=== PATIENT | female | born 1975 | race Caucasian/White ===

== ENCOUNTER → 2016-06-12 | Day surgery (SDC) | payer OTHER ==
[2016-06-09 08:25] LABS: HEMATOCRIT 37.4 % (37-47); MEAN CELL VOLUME 84.6 fL (80-100); MEAN CORPUSCULAR HEMOGLOBIN 28.7 pg (25-34); MEAN PLATELET VOLUME 10.3 fL (7.4-10.4); PLATELET COUNT 159 K/uL (130-400); RED BLOOD COUNT 4.42 M/uL (4.2-5.4); WHITE BLOOD COUNT 4.81 K/uL (4.8-10.8)
[2016-06-09 09:06] LABS: PROTHROMBIN TIME (PATIENT) 10.7 SECONDS (9.0-12.0)
[2016-06-11 14:05] VITALS: Ht 170.2 cm; Wt 75.0 kg
[~2016-06-12] VITALS: Ht 170.2 cm; Wt 75.0 kg
[~2016-06-12] MED LIST: ACETAMINOPHEN 325 MG TAB PO PRN; ASCO500T3 PO; BACITRACIN 50000 UNIT VIAL ONE; BUPIVACAINE 0.25% 2.5MG/ML PF 10 ML VIAL ONE; CEFAZOLIN 2000 MG/60 ML D5W IV SCH; CEFAZOLIN SOD 1 GM VIAL ONE; CITA10TA4 PO; COQ10 PO; DEXAMETHASONE SOD INJ 4 MG/ML VIAL ONE; EpINEphrine INJ 1MG/ML AMP 1 MG/ML AMP ONE; FENTANYL CITRATE INJ 50 MCG/1 ML 2 ML VIAL ONE; GENTAMICIN SULFATE 40 MG/ML 2 ML VIAL ONE; HYDROCODONE/ACETAMOPHEN 5/325MG TAB PO PRN; LACTATED RINGER'S 1000ML 1,000 ML IV SCH; LEVO150T9 PO; LIDOCAINE HCL 2% 2 ML VIAL (20MG/ML) ONE; LIDOCAINE/EPINEPHRINE 1% INJ 50 ML VIAL ONE; METOCLOPRAMIDE HCL INJ 5 MG/ML 2 ML VIAL IV PRN; MIDAZOLAM HCL 1 MG/ML 2ML VIAL ONE; MoRPHine SULFATE PF 1 MG/ML 10 ML AMP/VIAL ONE; ONDANSETRON INJ 2 MG/ML 2 ML VIAL IV PRN; ONDANSETRON INJ 2 MG/ML 2 ML VIAL ONE; PATIENT'S HEIGHT AND/OR WEIGHT NEEDED SCH; PROPOFOL IV EMULSION 10 MG/ML 20 ML VIAL IV ONE; SODIUM CHLORIDE 0.9% 1000ML 1,000 ML IV SCH; SODIUM CHLORIDE 0.9% INJ 10 ML VIAL ONE; VITAMIN B COMPLEX PO
--- NOTE | 2016-06-12 12:19 | History & Physical Bridge - [place] ---
H&P Re-Evaluation Bridge Note: I have examined the patient, reviewed the History & Physical and in the interval since the performance of the History & Physical I have noted the following changes of clinical significance: No changes noted
--- NOTE | 2016-06-12 14:15 | [facility] Post Operative Brief Note ---
Immediate Operative Summary Operative Date Jun 12, 2016. Pre-Operative Diagnosis Breast Reconstruction following bilateral mastectomy Post-Operative Diagnosis Same Procedure(s) Performed Bilateral Breast Implant Exchange For Silicone Breast Implants Surgeon Dr. Riccardo Flores Clutch Inspector Surgeon(s) Riccrado Potts PA-C Estimated Blood Loss 10 cc Findings none Specimens A. Right Breast Scar B. Left Breast Scar Anesthesia general Complication(s) None Disposition Recovery Room / PACU
--- NOTE | 2016-06-12 14:15 | Discharge Instructions ---
Discharge Instructions Admission Reason for Admission: Breast Reconstruction Following Mastectomy Discharge Discharge Diagnosis / Problem: breast reconstruction Discharge Goals Goal(s): Decrease discomfort Activity Recommendations Activity Limitations: as noted below ACTIVITY RECOMMENDATIONS: __Normal activities _x_No bending, lifting or straining __No driving __Driving allowed when you are off pain medications _x_Walking permitted __You should have help at home for ___ days DRESSINGS: __No dressings required _x_Keep dressings dry/in place until first office visit __Remove dressings ___ and leave dressings off __Apply ice ___ days __Remove dressings and reapply garment __Apply antibiotic ointment (Bacitracin, Neosporin, etc) to wounds 3-4 times/ day for 10 days BATHING: _x_Keep dressings dry _x_Sponge bathing permitted __Showering permitted _x_No swimming, hot tubs or soaking in a tub MEDICATIONS: Resume previous medications unless instructed otherwise by your surgeon. _x_Do not use aspirin, Motrin, Advil or Ibuprofen as these may promote bleeding. Please use Tylenol. _x_Prescription(s) provided: pain medication and antibiotic provided at your last office visit OTHER INSTRUCTIONS: __Record drain output 2-3 times per day SPECIAL CARE INSTRUCTIONS: * It is normal to have a mild fever after surgery. If your temperature is higher than 101.5 degrees F, please call the office at [phone]. * Constipation is a typical side effect of pain medication. An over-the- counter stool softener will help relieve this. * Leaking around surgical drains may occur and should not cause concern. Sometimes these drains become clogged. If this happens, remove the bulb and milk the clot out of the tube, then replace the bulb. * Drainage from wounds after liposuction is normal and should be expected. Garments will become soiled. You should protect furniture and bedding. This drainage should mostly subside within 2-3 days. Leave garments in place unless instructed to remove them. * If you have unusual drainage from a wound or are concerned you have an infection or have any questions or concerns, please call the office at [phone]. FOLLOW UP VISIT: If not already scheduled, please call the office, , when you return home after surgery to schedule an appointment to be seen in __2_ days. . Current Hospital Diet Patient's current hospital diet: Discharge Diet Recommended Diet: Regular Diet Procedures Procedures Performed: Bilateral Breast Implant Exchange For Silicone Breast Implants Pending Studies Studies pending at discharge: yes List of pending studies: pathology Medical Emergencies . Who to Call and When: Medical Emergencies: If at any time you feel your situation is an emergency, please call 911 immediately. . Non-Emergent Contact Non-Emergency issues call your: Primary Care Provider, Surgeon . "Provider Documentation" section prepared by Elina Potts. VTE Core Measure Inpt VTE Proph given/why not?: SCD's
[2016-06-12 15:16] VITALS: BP 135/87; PULSE 91; O2SAT 100
--- NOTE | 2016-06-12 15:22 | Anesthesia Progress Nt - [facility] ---
Anesthesia Post Op Note Date & Time Jun 12, 2016 at 15:22 Vital Signs Pain Intensity: 4 Vital Signs Past 12 Hours Date Time Temp Pulse Resp B/P Pulse Ox O2 Delivery O2 Flow Rate FiO2 06/12/16 15:16 91 16 135/87 100 Room Air 06/12/16 14:50 36.2 103 16 131/78 100 Room Air 06/12/16 14:45 36.5 99 Room Air 06/12/16 14:43 95 6 06/12/16 14:43 91 6 135/97 100 06/12/16 14:42 97 26 100 06/12/16 14:42 97 26 06/12/16 14:38 129/89 06/12/16 14:37 100 7 97 06/12/16 14:37 101 7 06/12/16 14:33 139/95 06/12/16 14:32 89 11 06/12/16 14:32 85 11 100 06/12/16 14:28 131/86 06/12/16 14:27 93 10 06/12/16 14:27 91 10 100 06/12/16 14:26 138/84 06/12/16 14:23 135/84 06/12/16 14:22 91 7 100 06/12/16 14:22 89 7 06/12/16 14:21 137/86 06/12/16 14:18 129/92 06/12/16 14:17 36.2 87 12 136/88 100 Mask 6 06/12/16 14:17 96 14 100 06/12/16 14:17 97 14 06/12/16 10:35 36.9 70 16 115/77 96 Room Air Notes Mental Status: alert / awake / arousable, participated in evaluation Pt Amnestic to Procedure: Yes Nausea / Vomiting: adequately controlled Pain: adequately controlled Airway Patency, RR, SpO2: stable & adequate BP & HR: stable & adequate Hydration State: stable & adequate Anesthetic Complications: no major complications apparent
--- NOTE | 2016-06-13 09:01 | OPERATIVE REPORT ---
DATE OF OPERATION: 06/12/2016 PREOPERATIVE DIAGNOSIS: Status post first stage breast reconstruction with tissue groundman/lineman and AlloDerm desiring implant exchange. PROCEDURE: Bilateral breast implant exchange for silicone implants SURGEON: Dr. Esmer Flores. CRICKET COACH: Elina Potts PA-C. ANESTHESIA: General. COMPLICATIONS: None. INDICATION FOR THE PROCEDURE: The patient is a 40-year-old female previously diagnosed with breast cancer who underwent bilateral mastectomy and desired breast reconstruction. This was performed about 1 year ago using tissue expanders and AlloDerm. After completion of her tissue expansion she elected to proceed with implant exchange for silicone implants. Risks and benefits of the procedure were discussed with the patient in the office preoperatively. OPERATION AND FINDINGS: BRIEF DESCRIPTION OF THE PROCEDURE: The patient was identified and marked in the preoperative holding area. She was brought to the operating room where she was positioned supine and placed under general anesthesia without incident. Surgical site was prepped and draped sterilely. A time-out procedure was performed. The planned incisions were marked along her prior mastectomy incisions. I began with the left side. 1% lidocaine with epinephrine was used to anesthetize the planned excision. A 15 blade scalpel made the elliptical incision and the scar was removed and sent for pathology. The incision was deepened through dermis, subcutaneous fat and pectoralis major muscle using electrocautery. The capsule was identified and incised. The tissue groundman/lineman was then punctured and the saline was drained. The groundman/lineman was freed from the capsule and removed. Pocket was inspected and there was a well-healed capsule with good incorporation of the AlloDerm. No unusual findings. The pocket was irrigated with sterile saline. At this time, I tried several sizer implants including a 480 ultra high profile and 535 ultra high profile implant. These did not appear to adequately fill out the pocket or provide the volume the patient desired. Ultimately a 550 mL smooth round high profile [place] sizer was selected and this was found to be the desired size. I therefore proceeded with implantation of smooth round high profile [place] 550 mL silicone gel implant. Prior to handling the implant the pocket was irrigated with antibiotic irrigation, 10 mL of 0.25% Marcaine plain were instilled into the pocket and gloves were changed. All instruments were wiped down using antibiotic. The implant was placed into the pocket and was able to be closed under minimal tension using 2-0 Vicryl to reapproximate the capsule and pectoralis major muscle, 2-0 Vicryl deep dermal sutures, 3-0 PDS superficial dermal sutures, 3-0 Monocryl running subcuticular suture. A similar procedure was undertaken on the right side. An identical implant was selected. However, closure was felt to be somewhat tight due to a band of scar tissue in the pocket and therefore a limited capsulotomy was performed using electrocautery to score the anterior capsule. Once hemostasis was assured identical implant was implanted and wound closed in similar fashion. Dermabond was applied to both incisions. Dry dressings and a surgical bra were placed. At the end of the case, there was reasonable symmetry between the breasts. The patient was awakened and transferred to recovery room in satisfactory condition. I attest to the content of the Intraoperative Record and any orders documented therein. Any exceptions are noted below. MICHELLD
== END | disposition home or self-care (01) ==
LOC: X.SURG 10:08
PROVIDERS: ATTEND Plastic Surgery
DX: Z42.1 Encounter for breast reconstruction following mastectomy (principal); Z85.3 Personal history of malignant neoplasm of breast; F10.21 Alcohol dependence, in remission; Z90.89 Acquired absence of other organs; Z81.8 Family history of other mental and behavioral disorders; Z80.3 Family history of malignant neoplasm of breast; Z80.41 Family history of malignant neoplasm of ovary; Z87.891 Personal history of nicotine dependence; Z91.040 Latex allergy status; Z88.5 Allergy status to narcotic agent; Z88.6 Allergy status to analgesic agent; I34.1 Nonrheumatic mitral (valve) prolapse; E06.3 Autoimmune thyroiditis; M26.69 Other specified disorders of temporomandibular joint; F31.9 Bipolar disorder, unspecified

== ENCOUNTER 2017-07-21 19:14 | Emergency (ER) | payer OTHER ==
[~2017-07-21] VITALS: Ht 170.2 cm; Wt 73.2 kg
[~2017-07-21 19:14] MED LIST changes: -ACETAMINOPHEN 325 MG TAB PO PRN; -BACITRACIN 50000 UNIT VIAL ONE; -BUPIVACAINE 0.25% 2.5MG/ML PF 10 ML VIAL ONE; -CEFAZOLIN 2000 MG/60 ML D5W IV SCH; -CEFAZOLIN SOD 1 GM VIAL ONE; -DEXAMETHASONE SOD INJ 4 MG/ML VIAL ONE; -EpINEphrine INJ 1MG/ML AMP 1 MG/ML AMP ONE; -FENTANYL CITRATE INJ 50 MCG/1 ML 2 ML VIAL ONE; -GENTAMICIN SULFATE 40 MG/ML 2 ML VIAL ONE; -HYDROCODONE/ACETAMOPHEN 5/325MG TAB PO PRN; -LACTATED RINGER'S 1000ML 1,000 ML IV SCH; -LIDOCAINE HCL 2% 2 ML VIAL (20MG/ML) ONE; -LIDOCAINE/EPINEPHRINE 1% INJ 50 ML VIAL ONE; -METOCLOPRAMIDE HCL INJ 5 MG/ML 2 ML VIAL IV PRN; -MIDAZOLAM HCL 1 MG/ML 2ML VIAL ONE; -MoRPHine SULFATE PF 1 MG/ML 10 ML AMP/VIAL ONE; -ONDANSETRON INJ 2 MG/ML 2 ML VIAL IV PRN; -ONDANSETRON INJ 2 MG/ML 2 ML VIAL ONE; -PATIENT'S HEIGHT AND/OR WEIGHT NEEDED SCH; -PROPOFOL IV EMULSION 10 MG/ML 20 ML VIAL IV ONE; -SODIUM CHLORIDE 0.9% 1000ML 1,000 ML IV SCH; -SODIUM CHLORIDE 0.9% INJ 10 ML VIAL ONE
[2017-07-21 19:24] VITALS: TEMP 36.7; Ht 170.2 cm; Wt 73.2 kg
[2017-07-21] MEDS ORDERED: IBUPROFEN 600 MG TAB PO STA (20:43)
[2017-07-21] MEDS ORDERED: MILK1CAP PO (21:11)
[2017-07-21] MEDS ORDERED: LEVO100T7 PO (21:11)
[2017-07-21] MEDS ORDERED: OMEG10007 PO (21:11)
[2017-07-21] MEDS ORDERED: CHOL2000 PO (21:11)
[2017-07-21] MEDS ORDERED: MULT-240 PO (21:11)
[2017-07-21] MEDS ORDERED: LXP10 PO (21:11)
[2017-07-21 21:20] LABS: HEMATOCRIT 40.1 % (37-47); HEMOGLOBIN 13.4 g/dL (12.0-16.0); MEAN CELL VOLUME 88.3 fL (80-100); MEAN CORPUSCULAR HEMOGLOBIN 29.5 pg (25-34); MEAN CORPUSCULAR HGB CONC 33.4 g/dl (32-36); PLATELET COUNT 204 K/uL (130-400); RED CELL DISTRIBUTION WIDTH CV 14.1 % (11.5-14.5); RED CELL DISTRIBUTION WIDTH SD 45.5 fL (36.4-46.3); WHITE BLOOD COUNT 8.08 K/uL (4.8-10.8)
--- NOTE | 2017-07-21 21:21 | DIAGNOSTIC IMAGING REPORT ---
CHEST ONE VIEW PORTABLE CLINICAL HISTORY: CHEST PAIN dyspnea COMPARISON STUDY: 03/29/2014 FINDINGS: The bones soft tissues and hemidiaphragms are normal. The cardiomediastinal silhouette is normal. The lungs are clear. The pulmonary vasculature is normal. IMPRESSION: Negative chest. The above report was generated using voice recognition software. It may contain grammatical, syntax or spelling errors. Electronically signed by: Jef Melchor M.D. 07/21/2017 9:20 PM Dictated Date/Time: 07/21/2017 9:20 PM
[2017-07-21 21:37] LABS: BLOOD UREA NITROGEN 10 mg/dl (7-18); CALCIUM 9.2 mg/dl (8.5-10.1); CARBON DIOXIDE 26 mmol/L (21-32); CREATININE 0.81 mg/dl (0.60-1.20); GLUCOSE 69 mg/dl (70-99); POTASSIUM 3.3 mmol/L (3.5-5.1); SODIUM 140 mmol/L (136-145)
[2017-07-21 22:50] VITALS: BP 109/80; PULSE 67; O2SAT 100
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
== END 2017-07-21 22:51 | disposition home or self-care (01) ==
LOC: C.EDB 19:19
DX: R07.2 Precordial pain (principal); F41.9 Anxiety disorder, unspecified; N89.8 Other specified noninflammatory disorders of vagina; Z85.3 Personal history of malignant neoplasm of breast; E06.3 Autoimmune thyroiditis; F17.210 Nicotine dependence, cigarettes, uncomplicated; Z79.899 Other long term (current) drug therapy; Z90.10 Acquired absence of unspecified breast and nipple; Z80.3 Family history of malignant neoplasm of breast